=== PATIENT | female | born 1985 | race Caucasian/White ===

== ENCOUNTER 2022-02-25 13:42 | Emergency (ER) | payer BC, SELFPAY ==
--- NOTE | ~2022-02-25 | XR_ITS ---
EXAMINATION: XR finger 5th LT min 2V DATE: 02/25/2022 14:09 INDICATION: Injury to the fifth finger with proximal swelling TECHNIQUE: Dorsal palmar, lateral and oblique views of the left fifth digit were obtained COMPARISON: None FINDINGS: Alignment is normal. No fracture. Joint spaces are normal. Soft tissues are unremarkable. IMPRESSION: 1. Negative left fifth digit radiographs. Reviewed, dictated and finalized at location A.
[2022-02-25 13:50] VITALS: BP 142/89; PULSE 110; RESP 14; TEMP 37.7; O2SAT 98
--- NOTE | 2022-02-25 14:14 | ED.UPPEXIN ---
HPI - Extremity Injury (Upper) General Chief Complaint: Extremity Injury, Upper Stated Complaint: Finger Injury Time Seen by Provider: 02/25/22 14:05 Source: patient Mode of arrival: ambulatory Limitations: no limitations History of Present Illness HPI narrative: 28-year-old female presents with multiple abrasions and pain to left little finger. States that last night she was walking her dog and her dog ran after another dog and pulled her down to the ground and dragged her. Patient has bruises to both knees, abrasions to both hands, abrasion to left shoulder. Her left little finger is swollen and tender. Tetanus is up-to-date. No head injury, no LOC. Did wash her abrasions with soap and water last night after injury. All systems reviewed and negative except as noted above. Related Data Home Medications Medication Instructions Recorded Confirmed fluoxetine [Prozac] 20 mg PO DAILY 02/25/22 02/25/22 Allergies Allergy/AdvReac Type Severity Reaction Status Date / Time No Known Allergies Allergy Verified 02/25/22 13:58 Review of Systems Review of Systems: CONSTITUTIONAL: Denies fever, chills, or sweats. EYES: Denies visual changes, redness, or discharge. ENT: Denies rhinorrhea, congestion, sore throat, or otalgia. CARDIOVASCULAR: Denies chest pain, palpitations, or edema. RESPIRATORY: Denies cough or dyspnea. GASTROINTESTINAL: Denies abdominal pain, nausea, vomiting, or diarrhea. GENITOURINARY: Denies dysuria or hematuria. SKIN: Denies rash or itching. Reports multiple abrasions to hands, left shoulder, bruises to both knees. MUSCULOSKELETAL: Denies back pain, joint pain, or myalgia. Reports pain to left little finger. NEUROLOGIC: Denies headache, numbness, or weakness. PSYCHIATRIC: Denies anxiety or depression. All other systems reviewed are negative, except as documented in HPI. PMFSH Comments At time of signature, agree with nursing past medical, surgical, social and family history. There is no relevant family history pertinent to the presenting complaint. Exam Narrative: GENERAL: This is a well-nourished, well-developed patient, in no apparent distress. HEAD: normocephalic, atraumatic. EYES: PERRL. Sclera clear/white. Vision is grossly intact. EARS: External ears normal NOSE: External nose normal NECK: Neck supple, non-tender without lymphadenopathy, masses or thyromegaly. CARDIOVASCULAR: Regular rate and rhythm without murmurs, gallops, or rubs. RESPIRATORY: Clear to auscultation. Breath sounds equal bilaterally. No wheezes, rales, or rhonchi. SKIN: warm, Dry, intact with no suspicious lesions or rash, good texture and turgor. Superficial abrasions to both hands and to left shoulder. No signs of infection. Bruising to both knees without swelling. NEURO: awake, alert, and oriented to person, place and time. There were no obvious focal neurologic abnormalities. EXTREMITIES: No joint tenderness, effusion, or edema noted. Swelling and decreased range of motion to the left little finger due to pain. Tenderness at the PIP. Course Course Level of Care: Express Care Visit Vital Signs Vital signs: Vital Signs Temperature 37.7 C H 02/25/22 13:50 Pulse Rate 110 H 02/25/22 13:50 Respiratory Rate 14 02/25/22 13:50 Blood Pressure 142/89 H 02/25/22 13:50 Pulse Oximetry 98 02/25/22 13:50 Temperature 37.7 C H 02/25/22 13:50 Pulse Rate 110 H 02/25/22 13:50 Respiratory Rate 14 02/25/22 13:50 Blood Pressure 142/89 H 02/25/22 13:50 Pulse Oximetry 98 02/25/22 13:50 Reviewed MDM - Extremity Injury (Upper) MDM Narrative Medical decision making narrative: discussed x-ray results with pt. no fx noted. pt placed in splint by RN. distal NV intact after application. Patient is aware of diagnosis, understands and agrees to treatment plan. Anticipatory guidance given. Patient agrees to follow-up as directed and is aware of reasons to seek care at the emergency department. Portions of this r
== END 2022-02-25 14:23 | disposition home or self-care (01) ==
PROVIDERS: Emergency Provider Nurse Practitioner Family; PCP Internal Medicine
DX: S60.512A Abrasion of left hand, initial encounter (principal); S60.511A Abrasion of right hand, initial encounter; S40.212A Abrasion of left shoulder, initial encounter; W19.XXXA Unspecified fall, initial encounter; Y93.K1 Activity, walking an animal; S63.617A Unspecified sprain of left little finger, initial encounter; F41.9 Anxiety disorder, unspecified
CPT/HCPCS: 29130; 73140; 99213; G0463